=== PATIENT | male | born 1995 | race Caucasian/White ===

== ENCOUNTER → 2018-04-03 | Outpatient (CLI) | payer OTHER | LOC: COL.RAD 11:15 | DX: N43.3 Hydrocele, unspecified (principal); I86.1 Scrotal varices; N45.1 Epididymitis ==

== ENCOUNTER → 2018-11-24 | Outpatient (CLI) | payer OTHER | LOC: COL.CARD 11-20 08:00 | DX: R03.0 Elevated blood-pressure reading, without diagnosis of hypertension (principal) ==

== ENCOUNTER 2019-03-27 06:06 | Emergency (ER) | payer OTHER ==
[~2019-03-27] VITALS: Ht 182.9 cm; Wt 106.8 kg
[2019-03-27 06:15] VITALS: TEMP 98.5
[2019-03-27] MEDS ORDERED: LEXAPRO 10MG10 MG PO (06:38)
[2019-03-27 07:48] LABS: HEMATOCRIT 49.9 % (42.0-52.0); HEMOGLOBIN 16.6 g/dl (13.5-18.0); MEAN CELL VOLUME 86 fl (80.0-100.0); MEAN CORPUSCULAR HEMOGLOBIN 29 pg (27.0-31.0); MEAN CORPUSCULAR HGB CONC 33 g/dl (33.0-37.0); MEAN PLATELET VOLUME 10.6 fl (7.4-10.4); PLATELET COUNT 280 K/mm3 (130-400); RED BLOOD COUNT 5.81 M/mm3 (4.20-5.60); REDCELL DISTRIBUTION WIDTH-CV 14.1 % (11.5-14.5)
[2019-03-27] MEDS ORDERED: PHENERGAN 25 TA25 MG PO (07:49)
[2019-03-27] MEDS ORDERED: BENTYL 20MG20 MG/TAB PO (07:49)
[2019-03-27 08:04] LABS: ALBUMIN 5.2 gm/dL (3.5-5.0); BILIRUBIN,TOTAL 0.8 mg/dL (0.0-1.0); C-REACTIVE PROTEIN 1.6 mg/dL (0.0-0.9); CALCIUM 10.1 mg/dL (8.4-10.2); CREATININE, serum 1.03 (0.66-1.25); POTASSIUM 4.1 mmol/L (3.4-5.0); TOTAL PROTEIN 8.8 gm/dL (6.4-8.2)
[2019-03-27 08:22] LABS: BAND 17 % (0-10); EOSINOPHIL 1 % (0-4); LYMPHOCYTE 4 % (20.0-51.0); NEUTROPHILS 75 % (42.0-75.2); PLATELET ESTIMATE NORMAL (NORMAL)
[2019-03-27 09:00] VITALS: BP 144/77
[2019-03-27 09:57] VITALS: PULSE 98
== END 2019-03-27 10:25 | disposition home or self-care (01) ==
LOC: COL.ER 06:06
PROVIDERS: Emergency Medicine
DX: R19.7 Diarrhea, unspecified (principal); R11.2 Nausea with vomiting, unspecified
CPT/HCPCS: J1885; J2405; J2550; J7030